=== PATIENT | female | born 1960 | race Two or more races ===

== ENCOUNTER 2024-09-20 13:46 | Outpatient (AMB) | payer MEDICAID, SELFPAY ==
--- NOTE | 2024-09-20 14:12 | XR_ITS ---
Examination: Bilateral knees 2 views Right lateral knee left lateral knee 2 views Bilateral axial knees single view TECHNIQUE: Bilateral AP knees standing single view, bilateral PA knees standing single view 30 degrees flexion Standing right lateral knee left lateral knee 2 views Bilateral axial knees single view total 5 views Exam date and time: September 20, 2024 1430 hours INDICATIONS: Bilateral knee replacements left knee surgery June 2023 right knee surgery November 2023 FINDINGS: Moderate osteopenia Bilateral total knee arthroplasties. Satisfactory alignment No loosening of the prosthetic components No patellar dislocation IMPRESSION: Bilateral total knee arthroplasties with satisfactory alignment
--- NOTE | 2024-09-20 14:13 | PD.ORTHCLVIS ---
Med/Allergies Allergies & Medications Allergies acetaminophen (From Vicodin) Allergy (Intermediate, Verified 05/05/24 08:31) Nausea hydrocodone (From Vicodin) Allergy (Intermediate, Verified 05/05/24 08:31) Nausea tramadol (From Ultram) Allergy (Intermediate, Verified 05/05/24 08:31) Vomiting Exam Exam Patient is in no acute distress and is cooperative with the examination today. Patient has a normal mood and affect. Breathing is nonlabored. In no respiratory distress. Bilateral extremities were evaluated and demonstrates sensation intact to light touch. Palpable pedal pulses are present. No significant edema is present. Left knee incision is clean dry intact. Range of motion is 0 to 100 degrees. She is tender to palpation of the patella tendon from the inferior pole down to the tubercle Right knee incision is clean dry and intact. Range of motion is 0 to 100 degrees X-rays demonstrate a cementless total knee replacement in alignment positioning. They are cementless knees Assessment and Plan Problem List (1) Status post total right knee replacement: Status: Acute (2) Status post total left knee replacement: Status: Acute Plan: Patient is a pleasant 63-year-old female status post left total knee replacement. She is tender to palpation overlying the patella tendon. We discussed different treatment options. We will get new x-rays to ensure the components are good but we will discussed nonoperative treatment clued anti-inflammatories and physical therapy Questionairres Past Medical History Past Medical History Have you ever been diagnosed with any of the following: Neurological Problems Seizures: No Cardiology Problems Hypercholesterolemia: Yes Congestive Heart Failure: No Hypertension: Yes Respiratory Problems Chronic Obstructive Pulmonary Disease (COPD): No Stomache/Intestinal Problems Obesity: Yes Genital/Urinary Problems Renal Disease: No Kidney Stones: Yes Reproductive Problems Previous Pregnancies: Yes Musculoskeletal Problems Arthritis: Yes Endocrine Problems Diabetes Mellitus Type 1: No Diabetes Mellitus Type 2: No Other Problems Hospitalization: No Shingles: No Blood Transfusions: No Blood Transfusion Reaction: No Anesthesia Reactions: No Measles: Yes Cancer: No Surgical History Total Knee Replacement: Yes Thyroidectomy: Yes Subjective Immunization / Flu Flu Vaccine in the Last 12 Months: Yes Flu Vaccine Exclusion Criteria: Already Received History of Present Illness Chief complaint: Bilateral knee pain Gina is status post left total knee replacement 1 year ago in the left and 8 months on the right. She reports that the left knee pains been hurting her recently. She is a lot of pain with stairs. She points to below the patella tendon where the pain is. She Review of Systems Review of Systems: All systems negative unless otherwise noted in HPI.
[2024-09-20 14:15] VITALS: BP 155/74; PULSE 78; RESP 18; TEMP 36.3; O2SAT 97; BMI 35.9
== END 2024-09-20 14:17 | disposition home or self-care (01) ==
PROVIDERS: PCP Family Medicine; Referring Provider Family Medicine; Supervising Provider Orthopaedic Surgery Adult Reconstructive Orthopaedic Surgery; Visit Provider Orthopaedic Surgery Adult Reconstructive Orthopaedic Surgery
DX: M25.561 Pain in right knee (principal); M25.562 Pain in left knee; Z96.653 Presence of artificial knee joint, bilateral
CPT/HCPCS: 73564; 99213; G0463

== ENCOUNTER 2024-10-11 12:53 | Outpatient (AMB) | payer MEDICAID, SELFPAY ==
[2024-10-11 13:06] VITALS: BP 154/85; PULSE 72; RESP 17; TEMP 35.9; O2SAT 95; BMI 35.5
--- NOTE | 2024-10-11 13:06 | PD.ORTHCLVIS ---
Vital signs 10/11/24 13:06 Height 1.55 m Height Method Stated Weight 85.304 kg Weight Measurement Method Standing Scale BMI 35.5 BP 154/85 H Blood Pressure Source Automatic Cuff Blood Pressure Location Left Upper Arm Position Sitting Respiration 17 Pulse 72 Pulse Source Monitor Temp 96.6 F L Temp Source Temporal Artery Scan Pulse Oximetry (%) 95 Oxygen Delivery Method Room Air Med/Allergies Allergies & Medications Allergies acetaminophen (From Vicodin) Allergy (Intermediate, Verified 10/11/24 13:08) Nausea hydrocodone (From Vicodin) Allergy (Intermediate, Verified 10/11/24 13:08) Nausea tramadol (From Ultram) Allergy (Intermediate, Verified 10/11/24 13:08) Vomiting Medication Reconciliation acetaminophen 325 mg tablet 650 mg (2 x 325 mg) PO QID #90 tabs 07/08/23 [Rx Confirmed 10/11/24] lisinopril 20 mg tablet 20 mg PO QDAY 11/20/23 [History Confirmed 10/11/24] acetaminophen 500 mg tablet (Acetaminophen Extra Strength) 1,000 mg (2 x 500 mg) PO Q6H PRN pain #90 tabs 11/23/23 [Rx Confirmed 10/11/24] aspirin 81 mg tablet,delayed release 81 mg PO BID #60 tabs 11/23/23 [Rx Confirmed 10/11/24] doxycycline hyclate 100 mg tablet 100 mg PO BID #14 tabs 11/23/23 [Rx Confirmed 10/11/24] meloxicam 7.5 mg tablet 7.5 mg PO QDAY #30 tabs 11/23/23 [Rx Confirmed 10/11/24] pregabalin 75 mg capsule 75 mg PO BID #45 caps 11/23/23 [Rx Confirmed 10/11/24] sennosides 8.6 mg-docusate sodium 50 mg tablet (Senna-S) 1 tab-cap PO QDAY #30 tabs 11/23/23 [Rx Confirmed 10/11/24] diphenhydramine HCl 50 mg tablet 50 mg PO Q6H PRN itching #30 tabs 12/03/23 [Rx Confirmed 10/11/24] sulfamethoxazole 800 mg-trimethoprim 160 mg tablet (Bactrim DS) 1 tab PO Q12H #14 tabs 12/03/23 [Rx Confirmed 10/11/24] oxycodone 5 mg tablet 5 mg PO Q6H PRN pain #28 tabs 12/11/23 [Rx Confirmed 10/11/24] diphenhydramine HCl 25 mg capsule (Benadryl) 25 mg PO Q8H PRN allergic symptoms #30 caps 01/18/24 [Rx Confirmed 10/11/24] gabapentin 300 mg capsule 300 mg PO QHS #60 caps 05/05/24 [Rx Confirmed 10/11/24] Exam Exam Patient is in no acute distress and is cooperative with the examination today. Patient has a normal mood and affect. Breathing is nonlabored. In no respiratory distress. Bilateral extremities were evaluated and demonstrates sensation intact to light touch. Palpable pedal pulses are present. No significant edema is present. Left knee incision is clean dry intact. Range of motion is 0 to 100 degrees. She is tender to palpation of the patella tendon from the inferior pole down to the tubercle Right knee incision is clean dry and intact. Range of motion is 0 to 100 degrees X-rays demonstrate a cementless total knee replacement in alignment positioning. They are cementless knees Assessment and Plan Problem List (1) Status post total right knee replacement: Status: Acute (2) Status post total left knee replacement: Status: Acute Plan: Patient is a pleasant 63-year-old female status post left total knee replacement. She is doing well and we sent her some antiinflammatories for her patella tendonitis. Office Procedures GNS Level of Care Nursing/Assessment Patient Status: Established Patient Nursing Assessment/Reassesment: Medication Reconciliation, Update PMH in EMR and Vital Signs Coordination of Care: Complex Care and Chronic Disease 1-5, Education Complex Pt/Fam, Consent,records obtained, informed consent, Results/Orders obtained and Staff clarify orders Established Patient Charge Established Patient Point Assignment: 95 Established Patient Point Charge: EP Level 3 (80-115) MA Intake Visit Data Collection New Patient or Established: Established Patient (seen at [facility] within 3 years) Reason for Visit:: XRAY RESULTS Seen by Clinical Staff ONLY (RN/MA): No It Sales Consultant Required: 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 PCP or OBGYN visit in last 3 months: Yes Hx Now: No Do You Feel Safe at Home: Yes Authorities Contacted: N/A Questionairres Past Medical History Past Medical History Have you ever been diagnosed with any of the following: Neurological Problems Seizures: No Cardiology Problems Hypercholesterolemia: Yes Congestive Heart Failure: No Hypertension: Yes Respiratory Problems Chronic Obstructive Pulmonary Disease (COPD): No Smoking: No Smoking Cessation Counseling: No Smoking Exposure: No Stomache/Intestinal Problems Obesity: Yes Genital/Urinary Problems Renal Disease: No Kidney Stones: Yes Reproductive Problems Previous Pregnancies: Yes Musculoskeletal Problems Arthritis: Yes Endocrine Problems Diabetes Mellitus Type 1: No Diabetes Mellitus Type 2: No Other Problems Hospitalization: No Shingles: No Blood Transfusions: No Blood Transfusion Reaction: No Anesthesia Reactions: No Measles: Yes Cancer: No Surgical History Total Knee Replacement: Yes Thyroidectomy: Yes Subjective Visit Visit for: follow up visit and x-rays (RESULTS) Immunization / Flu Flu Vaccine in the Last 12 Months: No Flu Vaccine Exclusion Criteria: No Exclusion Criteria History of Present Illness Chief complaint: Bilateral knee pain Gina is status post left total knee replacement approximately 1 year ago. She reports she is doing well. Her xrays look good Pain Pain level (0-10): 7 Pain duration: ON AND OFF Pain location: inside (medial) and anterior Pain quality: sharp and aching Pain timing: night and increases with activity Associated signs & symptoms: stiffness Ambulatory data Ambulatory device: none Treatments Improvement with previous injections: No Improvement with PT: No Improvement with NSAIDS: no Review of Systems Review of Systems: All systems negative unless otherwise noted in HPI.
== END 2024-10-11 13:17 | disposition home or self-care (01) ==
LOC: HODSRG 12:53
PROVIDERS: PCP Family Medicine; Referring Provider Family Medicine; Supervising Provider Orthopaedic Surgery Adult Reconstructive Orthopaedic Surgery; Visit Provider Orthopaedic Surgery Adult Reconstructive Orthopaedic Surgery
DX: Z96.653 Presence of artificial knee joint, bilateral (principal); I10 Essential (primary) hypertension; E78.00 Pure hypercholesterolemia, unspecified
CPT/HCPCS: 99213; G0463

== ENCOUNTER 2024-12-06 13:35 | Outpatient (AMB) | payer MEDICAID, SELFPAY ==
[2024-12-06 14:04] VITALS: BP 130/81; PULSE 79; RESP 18; TEMP 36.7; O2SAT 98; BMI 33.6
--- NOTE | 2024-12-06 14:04 | ORTHONT_ITS ---
Vital signs 12/06/24 14:04 Height 1.55 m Height Method Stated Weight 80.824 kg Weight Measurement Method Standing Scale BMI 33.6 BP 130/81 Blood Pressure Source Automatic Cuff Blood Pressure Location Right Upper Arm Position Sitting Respiration 18 Pulse 79 Pulse Source Monitor Temp 98.1 F Temp Source Temporal Artery Scan Pulse Oximetry (%) 98 Oxygen Delivery Method Room Air Med/Allergies Allergies & Medications Allergies acetaminophen (From Vicodin) Allergy (Intermediate, Verified 12/06/24 14:05) Nausea hydrocodone (From Vicodin) Allergy (Intermediate, Verified 12/06/24 14:05) Nausea tramadol (From Ultram) Allergy (Intermediate, Verified 12/06/24 14:05) Vomiting Medication Reconciliation acetaminophen 325 mg tablet 650 mg (2 x 325 mg) PO QID #90 tabs 07/08/23 [Rx Confirmed 12/06/24] lisinopril 20 mg tablet 20 mg PO QDAY 11/20/23 [History Confirmed 12/06/24] acetaminophen 500 mg tablet (Acetaminophen Extra Strength) 1,000 mg (2 x 500 mg) PO Q6H PRN pain #90 tabs 11/23/23 [Rx Confirmed 12/06/24] aspirin 81 mg tablet,delayed release 81 mg PO BID #60 tabs 11/23/23 [Rx Confirmed 12/06/24] doxycycline hyclate 100 mg tablet 100 mg PO BID #14 tabs 11/23/23 [Rx Confirmed 12/06/24] meloxicam 7.5 mg tablet 7.5 mg PO QDAY #30 tabs 11/23/23 [Rx Confirmed 12/06/24] sennosides 8.6 mg-docusate sodium 50 mg tablet (Senna-S) 1 tab-cap PO QDAY #30 tabs 11/23/23 [Rx Confirmed 12/06/24] diphenhydramine HCl 50 mg tablet 50 mg PO Q6H PRN itching #30 tabs 12/03/23 [Rx Confirmed 12/06/24] sulfamethoxazole 800 mg-trimethoprim 160 mg tablet (Bactrim DS) 1 tab PO Q12H #14 tabs 12/03/23 [Rx Confirmed 12/06/24] oxycodone 5 mg tablet 5 mg PO Q6H PRN pain #28 tabs 12/11/23 [Rx Confirmed 12/06/24] diphenhydramine HCl 25 mg capsule (Benadryl) 25 mg PO Q8H PRN allergic symptoms #30 caps 01/18/24 [Rx Confirmed 12/06/24] gabapentin 300 mg capsule 300 mg PO QHS #60 caps 05/05/24 [Rx Confirmed 12/06/24] naproxen 500 mg tablet 500 mg PO BID PRN pain #60 tabs 10/11/24 [Rx Confirmed 12/06/24] pregabalin 75 mg capsule 75 mg PO BID #45 caps 12/06/24 [Rx] Exam Exam Patient is in no acute distress and is cooperative with the examination today. Patient has a normal mood and affect. Breathing is nonlabored. In no respiratory distress. Bilateral extremities were evaluated and demonstrates sensation intact to light touch. Palpable pedal pulses are present. No significant edema is present. Left knee incision is clean dry intact. Range of motion is 0 to 100 degrees. She is tender to palpation of the patella tendon from the inferior pole down to the tubercle Right knee incision is clean dry and intact. Range of motion is 0 to 100 degrees X-rays demonstrate a cementless total knee replacement in alignment positioning. They are cementless knees Assessment and Plan Problem List (1) Status post total right knee replacement: Status: Acute (2) Status post total left knee replacement: Status: Acute Plan: Patient is a pleasant 63-year-old female status post left total knee replacement. She is doing well and we sent her some antiinflammatories for her patella tendonitis. We will get new x-rays as she has had a recent increase in pain in the last Office Procedures GNS Level of Care Nursing/Assessment Patient Status: Established Patient Nursing Assessment/Reassesment: Medication Reconciliation, Update PMH in EMR and Vital Signs Coordination of Care: Complex Care and Chronic Disease 1-5, Education Complex Pt/Fam, Consent,records obtained, informed consent, Results/Orders obtained and Staff clarify orders Special Needs: Language special needs Established Patient Charge Established Patient Point Assignment: 95 Established Patient Point Charge: EP Level 3 (80-115) MA Intake Visit Data Collection New Patient or Established: Established Patient (seen at [facility] within 3 years) Reason for Visit:: KNEE PAIN Seen by Clinical Staff ONLY (RN/MA): No Verbal consent obtained for Telemed visit?: No 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 PCP or OBGYN visit in last 3 months: Yes Hx Now: No Do You Feel Safe at Home: Yes Authorities Contacted: N/A Questionairres Past Medical History Past Medical History Have you ever been diagnosed with any of the following: Neurological Problems Seizures: No Cardiology Problems Hypercholesterolemia: Yes Congestive Heart Failure: No Hypertension: Yes Respiratory Problems Chronic Obstructive Pulmonary Disease (COPD): No Smoking: No Smoking Cessation Counseling: No Smoking Exposure: No Stomache/Intestinal Problems Obesity: Yes Genital/Urinary Problems Renal Disease: No Kidney Stones: Yes Reproductive Problems Previous Pregnancies: Yes Musculoskeletal Problems Arthritis: Yes Endocrine Problems Diabetes Mellitus Type 1: No Diabetes Mellitus Type 2: No Other Problems Hospitalization: No Shingles: No Blood Transfusions: No Blood Transfusion Reaction: No Anesthesia Reactions: No Measles: Yes Cancer: No Surgical History Total Knee Replacement: Yes Thyroidectomy: Yes Subjective Visit Visit for: follow up visit and knee Immunization / Flu Flu Vaccine in the Last 12 Months: No Flu Vaccine Exclusion Criteria: No Exclusion Criteria History of Present Illness Chief complaint: KNEE PAIN Gina is status post left total knee replacement approximately 1.5 year ago. She reports she is doing well. Her xrays look good. She reports that she has been getting unwanted numbness and tingling starting 3 days ago Pain Pain level (0-10): 4 Pain duration: ALL DAY Pain location: inside (medial) and outside (lateral) Pain quality: shocking and electric Pain timing: night Associated signs & symptoms: numbness Ambulatory data Ambulatory device: none Treatments Improvement with previous injections: No Improvement with PT: No Improvement with NSAIDS: no Review of Systems Review of Systems: All systems negative unless otherwise noted in HPI.
--- NOTE | 2024-12-06 14:11 | XR_ITS ---
Examination: Bilateral knees 2 views Right lateral knee left lateral knee 2 views Bilateral axial knees single view TECHNIQUE: Bilateral AP knees standing single view, bilateral PA knees standing single view flexion Standing right lateral knee left lateral knee 2 views Bilateral axial knees single view total 5 views Date and time: December 06, 2024 1441 hours Comparison September 20, 2024 INDICATIONS: Left knee replacement 2 years ago right knee replacement one year ago, bilateral knee pain beginning 7 days ago. FINDINGS: Moderate osteopenia Bilateral total knee arthroplasties. Satisfactory alignment. No fractures No loosening of the prosthetic devices Moderate narrowing right lateral patellofemoral joint IMPRESSION: Bilateral total knee arthroplasties with satisfactory alignment
== END 2024-12-06 14:13 | disposition home or self-care (01) ==
LOC: HODSRG 13:35
PROVIDERS: PCP Family Medicine; Referring Provider Family Medicine; Supervising Provider Orthopaedic Surgery Adult Reconstructive Orthopaedic Surgery; Visit Provider Orthopaedic Surgery Adult Reconstructive Orthopaedic Surgery
DX: Z96.653 Presence of artificial knee joint, bilateral (principal); M76.50 Patellar tendinitis, unspecified knee; I10 Essential (primary) hypertension; E78.00 Pure hypercholesterolemia, unspecified
CPT/HCPCS: 73564; 99213; G0463

== ENCOUNTER 2024-12-22 15:23 | Outpatient (AMB) | payer MEDICAID, SELFPAY ==
[2024-12-22 16:15] VITALS: BP 126/75; PULSE 78; RESP 18; TEMP 36.2; O2SAT 97; BMI 33.0
--- NOTE | 2024-12-22 16:15 | ORTHONT_ITS ---
Vital signs 12/22/24 16:15 Height 1.55 m Height Method Stated Weight 79.435 kg Weight Measurement Method Standing Scale BMI 33.0 BP 126/75 Blood Pressure Source Automatic Cuff Blood Pressure Location Left Upper Arm Position Sitting Respiration 18 Pulse 78 Pulse Source Monitor Temp 97.1 F Temp Source Temporal Artery Scan Pulse Oximetry (%) 97 Oxygen Delivery Method Room Air Med/Allergies Allergies & Medications Allergies acetaminophen (From Vicodin) Allergy (Intermediate, Verified 12/22/24 16:16) Nausea hydrocodone (From Vicodin) Allergy (Intermediate, Verified 12/22/24 16:16) Nausea tramadol (From Ultram) Allergy (Intermediate, Verified 12/22/24 16:16) Vomiting Medication Reconciliation acetaminophen 325 mg tablet 650 mg (2 x 325 mg) PO QID #90 tabs 07/08/23 [Rx Confirmed 12/22/24] lisinopril 20 mg tablet 20 mg PO QDAY 11/20/23 [History Confirmed 12/22/24] acetaminophen 500 mg tablet (Acetaminophen Extra Strength) 1,000 mg (2 x 500 mg) PO Q6H PRN pain #90 tabs 11/23/23 [Rx Confirmed 12/22/24] aspirin 81 mg tablet,delayed release 81 mg PO BID #60 tabs 11/23/23 [Rx Confirmed 12/22/24] doxycycline hyclate 100 mg tablet 100 mg PO BID #14 tabs 11/23/23 [Rx Confirmed 12/22/24] meloxicam 7.5 mg tablet 7.5 mg PO QDAY #30 tabs 11/23/23 [Rx Confirmed 12/06/24] sennosides 8.6 mg-docusate sodium 50 mg tablet (Senna-S) 1 tab-cap PO QDAY #30 tabs 11/23/23 [Rx Confirmed 12/22/24] diphenhydramine HCl 50 mg tablet 50 mg PO Q6H PRN itching #30 tabs 12/03/23 [Rx Confirmed 12/22/24] sulfamethoxazole 800 mg-trimethoprim 160 mg tablet (Bactrim DS) 1 tab PO Q12H #14 tabs 12/03/23 [Rx Confirmed 12/22/24] oxycodone 5 mg tablet 5 mg PO Q6H PRN pain #28 tabs 12/11/23 [Rx Confirmed 12/22/24] diphenhydramine HCl 25 mg capsule (Benadryl) 25 mg PO Q8H PRN allergic symptoms #30 caps 01/18/24 [Rx Confirmed 12/22/24] gabapentin 300 mg capsule 300 mg PO QHS #60 caps 05/05/24 [Rx Confirmed 12/22/24] naproxen 500 mg tablet 500 mg PO BID PRN pain #60 tabs 10/11/24 [Rx Confirmed 12/22/24] pregabalin 75 mg capsule 75 mg PO BID #45 caps 12/06/24 [Rx Confirmed 12/22/24] diclofenac sodium 1 % topical gel 4 g topical QID #100 grams 12/22/24 [Rx] Exam Exam Patient is in no acute distress and is cooperative with the examination today. Patient has a normal mood and affect. Breathing is nonlabored. In no respiratory distress. Bilateral extremities were evaluated and demonstrates sensation intact to light touch. Palpable pedal pulses are present. No significant edema is present. Left knee incision is clean dry intact. Range of motion is 0 to 100 degrees. She is tender to palpation of the patella tendon from the inferior pole down to the tubercle Right knee incision is clean dry and intact. Range of motion is 0 to 100 degrees X-rays demonstrate a cementless total knee replacement in alignment positioning. They are cementless knees Assessment and Plan Problem List (1) Status post total right knee replacement: Status: Acute (2) Status post total left knee replacement: Status: Acute Plan: Patient is a pleasant 63-year-old female status post left total knee replacement. She is doing well and we sent her some antiinflammatories for her patella tendonitis. She is doing better with the lyrica (3) Patellar tendinitis: Status: Acute Office Procedures GNS Level of Care Nursing/Assessment Patient Status: Established Patient Nursing Assessment/Reassesment: Medication Reconciliation, Update PMH in EMR and Vital Signs Coordination of Care: Complex Care and Chronic Disease 1-5, Education Complex Pt/Fam, Consent,records obtained, informed consent, Results/Orders obtained and Staff clarify orders Special Needs: Language special needs Established Patient Charge Established Patient Point Assignment: 95 Established Patient Point Charge: EP Level 3 (80-115) PA Intake Visit Data Collection New Patient or Established: Established Patient (seen at [facility] within 3 years) Reason for Visit:: LEFT KNEE F/U Seen by Clinical Staff ONLY (RN/MA): No Four Slide 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 PCP or OBGYN visit in last 3 months: Yes Hx Now: No Do You Feel Safe at Home: Yes Authorities Contacted: N/A Questionairres Past Medical History Past Medical History Have you ever been diagnosed with any of the following: Neurological Problems Seizures: No Cardiology Problems Hypercholesterolemia: Yes Congestive Heart Failure: No Hypertension: Yes Respiratory Problems Chronic Obstructive Pulmonary Disease (COPD): No Smoking: No Smoking Cessation Counseling: No Smoking Exposure: No Stomache/Intestinal Problems Obesity: Yes Genital/Urinary Problems Renal Disease: No Kidney Stones: Yes Reproductive Problems Previous Pregnancies: Yes Musculoskeletal Problems Arthritis: Yes Endocrine Problems Diabetes Mellitus Type 1: No Diabetes Mellitus Type 2: No Other Problems Hospitalization: No Shingles: No Blood Transfusions: No Blood Transfusion Reaction: No Anesthesia Reactions: No Measles: Yes Cancer: No Surgical History Total Knee Replacement: Yes Thyroidectomy: Yes Subjective Visit Visit for: follow up visit, knee and x-rays Immunization / Flu Flu Vaccine in the Last 12 Months: No Flu Vaccine Exclusion Criteria: No Exclusion Criteria History of Present Illness Chief complaint: KNEE PAIN Gina is status post left total knee replacement approximately 1.5 year ago. She reports she is doing well. Her xrays look good. She reports that she has been getting unwanted numbness and tingling starting 2 weeks ago. She reports that the pregabalin has helped tremendously Pain Pain level (0-10): 6 Pain duration: ON AND OFF Pain location: inside (medial), outside (lateral) and anterior Pain quality: sharp, dull, aching, shocking and electric Pain timing: night and increases with activity Associated signs & symptoms: numbness and weakness Ambulatory data Ambulatory device: none Treatments Improvement with previous injections: No Improvement with PT: No Improvement with NSAIDS: no Review of Systems Review of Systems: All systems negative unless otherwise noted in HPI.
== END 2024-12-22 16:19 | disposition home or self-care (01) ==
PROVIDERS: PCP Family Medicine; Referring Provider Family Medicine; Supervising Provider Orthopaedic Surgery Adult Reconstructive Orthopaedic Surgery; Visit Provider Orthopaedic Surgery Adult Reconstructive Orthopaedic Surgery
DX: Z96.652 Presence of left artificial knee joint (principal); M76.52 Patellar tendinitis, left knee; I10 Essential (primary) hypertension; E78.00 Pure hypercholesterolemia, unspecified
CPT/HCPCS: 99213; G0463

== ENCOUNTER 2025-03-30 14:48 | Outpatient (AMB) | payer MEDICAID, SELFPAY ==
--- NOTE | 2025-03-30 15:00 | ORTHONT_ITS ---
Vital signs 03/30/25 15:01 Height 1.55 m Height Method Measured Weight 73.652 kg Weight Measurement Method Standing Scale BMI 30.7 BP 115/73 Blood Pressure Source Automatic Cuff Blood Pressure Location Left Upper Arm Position Sitting Respiration 16 Pulse 66 Pulse Source Monitor Temp 97.2 F Temp Source Temporal Artery Scan Pulse Oximetry (%) 98 Oxygen Delivery Method Room Air Med/Allergies Allergies & Medications Allergies acetaminophen (From Vicodin) Allergy (Intermediate, Verified 03/30/25 15:02) Nausea hydrocodone (From Vicodin) Allergy (Intermediate, Verified 03/30/25 15:02) Nausea tramadol (From Ultram) Allergy (Intermediate, Verified 03/30/25 15:02) Vomiting Medication Reconciliation acetaminophen 325 mg tablet 650 mg (2 x 325 mg) PO QID #90 tabs 07/08/23 [Rx Confirmed 03/30/25] lisinopril 20 mg tablet 20 mg PO QDAY 11/20/23 [History Confirmed 03/30/25] acetaminophen 500 mg tablet (Acetaminophen Extra Strength) 1,000 mg (2 x 500 mg) PO Q6H PRN pain #90 tabs 11/23/23 [Rx Confirmed 03/30/25] aspirin 81 mg tablet,delayed release 81 mg PO BID #60 tabs 11/23/23 [Rx Confirmed 03/30/25] doxycycline hyclate 100 mg tablet 100 mg PO BID #14 tabs 11/23/23 [Rx Confirmed 03/30/25] meloxicam 7.5 mg tablet 7.5 mg PO QDAY #30 tabs 11/23/23 [Rx Confirmed 03/30/25] sennosides 8.6 mg-docusate sodium 50 mg tablet (Senna-S) 1 tab-cap PO QDAY #30 tabs 11/23/23 [Rx Confirmed 03/30/25] diphenhydramine HCl 50 mg tablet 50 mg PO Q6H PRN itching #30 tabs 12/03/23 [Rx Confirmed 03/30/25] sulfamethoxazole 800 mg-trimethoprim 160 mg tablet (Bactrim DS) 1 tab PO Q12H #14 tabs 12/03/23 [Rx Confirmed 03/30/25] oxycodone 5 mg tablet 5 mg PO Q6H PRN pain #28 tabs 12/11/23 [Rx Confirmed 03/30/25] diphenhydramine HCl 25 mg capsule (Benadryl) 25 mg PO Q8H PRN allergic symptoms #30 caps 01/18/24 [Rx Confirmed 03/30/25] naproxen 500 mg tablet 500 mg PO BID PRN pain #60 tabs 10/11/24 [Rx Confirmed 03/30/25] pregabalin 75 mg capsule 75 mg PO BID #45 caps 12/06/24 [Rx Confirmed 03/30/25] diclofenac sodium 1 % topical gel 4 g topical QID #100 grams 12/22/24 [Rx Confirmed 03/30/25] gabapentin 300 mg capsule 300 mg PO QHS #60 caps 03/30/25 [Rx] Exam Exam Patient is in no acute distress and is cooperative with the examination today. Patient has a normal mood and affect. Breathing is nonlabored. In no respiratory distress. Bilateral extremities were evaluated and demonstrates sensation intact to light touch. Palpable pedal pulses are present. No significant edema is present. Left knee incision is clean dry intact. Range of motion is 0 to 100 degrees. She is tender to palpation of the patella tendon from the inferior pole down to the tubercle Right knee incision is clean dry and intact. Range of motion is 0 to 100 degrees X-rays demonstrate a cementless total knee replacement in alignment positioning. They are cementless knees Assessment and Plan Problem List (1) Status post total right knee replacement: Status: Acute (2) Status post total left knee replacement: Status: Acute Plan: Patient is a pleasant 63-year-old female status post left total knee replacement. She is having radicular pain that is going down from her knee down her toes. We will try gabapentin She has great relief from osteoarthritis (3) Patellar tendinitis: Status: Acute Office Procedures GNS Level of Care Nursing/Assessment Patient Status: Established Patient Nursing Assessment/Reassesment: Medication Reconciliation, Orthostatic Vitals, Update PMH in EMR and Vital Signs Coordination of Care: Complex Care and Chronic Disease 1-5, Education Complex Pt/Fam, Consent,records obtained, informed consent, Lab and Imaging orders, Results/Orders obtained and Staff clarify orders Special Needs: Language special needs Established Patient Charge Established Patient Point Assignment: 120 Established Patient Point Charge: EP Level 3 (80-115) MA Intake Visit Data Collection New Patient or Established: Established Patient (seen at [facility] within 3 years) Reason for Visit:: KNEE PAIN Seen by Clinical Staff ONLY (RN/MA): No 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 PCP or OBGYN visit in last 3 months: Yes Hx Now: No Do You Feel Safe at Home: Yes Authorities Contacted: N/A Questionairres Past Medical History Past Medical History Have you ever been diagnosed with any of the following: Neurological Problems Seizures: No Cardiology Problems Hypercholesterolemia: Yes Congestive Heart Failure: No Hypertension: Yes Respiratory Problems Chronic Obstructive Pulmonary Disease (COPD): No Smoking: No Smoking Cessation Counseling: No Smoking Exposure: No Stomache/Intestinal Problems Obesity: Yes Genital/Urinary Problems Renal Disease: No Kidney Stones: Yes Reproductive Problems Previous Pregnancies: Yes Musculoskeletal Problems Arthritis: Yes Endocrine Problems Diabetes Mellitus Type 1: No Diabetes Mellitus Type 2: No Other Problems Hospitalization: No Shingles: No Blood Transfusions: No Blood Transfusion Reaction: No Anesthesia Reactions: No Measles: Yes Cancer: No Surgical History Total Knee Replacement: Yes Thyroidectomy: Yes Subjective Visit Visit for: follow up visit and knee Immunization / Flu Flu Vaccine in the Last 12 Months: No Flu Vaccine Exclusion Criteria: No Exclusion Criteria History of Present Illness Chief complaint: KNEE PAIN Gina is status post left total knee replacement approximately 2 year ago. She reports she is doing well. Her xrays look good. She reports that she has been getting numbness and tingling starting 2 months ago. She reports that the pregabalin and gabapentin has helped tremendously and she wants a new prescription Pain Pain level (0-10): 8 Pain duration: ON AND OFF Pain location: inside (medial), outside (lateral) and anterior Pain quality: sharp, dull, aching, shocking and electric Pain timing: night and increases with activity Associated signs & symptoms: numbness and weakness Ambulatory data Ambulatory device: none Treatments Improvement with previous injections: No Improvement with PT: No Improvement with NSAIDS: no Review of Systems Review of Systems: All systems negative unless otherwise noted in HPI.
[2025-03-30 15:01] VITALS: BP 115/73; PULSE 66; RESP 16; TEMP 36.2; O2SAT 98; BMI 30.7
== END 2025-03-30 15:32 | disposition home or self-care (01) ==
LOC: HODSRG 14:48
PROVIDERS: PCP Family Medicine; Referring Provider Family Medicine; Supervising Provider Orthopaedic Surgery Adult Reconstructive Orthopaedic Surgery; Visit Provider Orthopaedic Surgery Adult Reconstructive Orthopaedic Surgery
DX: Z96.653 Presence of artificial knee joint, bilateral (principal); M76.50 Patellar tendinitis, unspecified knee; I10 Essential (primary) hypertension; E78.00 Pure hypercholesterolemia, unspecified; E66.9 Obesity, unspecified; Z68.30 Body mass index [BMI] 30.0-30.9, adult; R20.0 Anesthesia of skin; R20.2 Paresthesia of skin
CPT/HCPCS: 99213; G0463

== ENCOUNTER 2025-04-04 18:42 | Emergency (ER) | payer MEDICAID, SELFPAY ==
--- NOTE | 2025-04-04 18:48 | XR_ITS ---
Examination: Duplex scan of the lower extremity, unilateral left Date and time of exam: April 04, 2025, 1940 hrs. Indications: Left leg swelling and pain beginning 4 days ago Technique: Duplex scan of the extremity veins using B-mode/grayscale imaging and Doppler spectral analysis and color flow Attention is directed to internal echogenicity, compression and augmentation involving these veins, color flow assessment, spectral analysis Findings: Major deep venous structures in the extremity demonstrate normal course and caliber. There is no evidence of deep vein thrombosis. Normal color flow and spectral analysis Impression: Negative for DVT..
[2025-04-04 19:10] VITALS: BP 159/89; PULSE 70; RESP 18; TEMP 36.9; O2SAT 95; BMI 32.1
--- NOTE | 2025-04-04 19:35 | PD.EDEXREM ---
ED Extremity Problem RME/HPI General Chief complaint: Extremity Problem,Nontraumatic Stated complaint: R/O DVT to left lower leg Time Seen by Provider: 04/04/25 19:29 Arrival date/time: 04/04/25 18:42 64F with history of HTN and L knee replacement presents to ED with several days of LLE redness, swelling, and pain w/o fall/trauma. Patient saw ortho doc last week who did not do any interventions. PCP sent patient here to r/o DVT. Limitations: no limitations Related Data Home Medications ?Medication ?Instructions ?Recorded ?Confirmed lisinopril 20 mg tablet 20 mg PO QDAY 11/20/23 03/30/25 Previous Rx's ?Medication ?Instructions ?Recorded acetaminophen 325 mg tablet 650 mg (2 x 325 mg) PO QID #90 tabs 07/08/23 acetaminophen 500 mg tablet 1,000 mg (2 x 500 mg) PO Q6H PRN 11/23/23 (Acetaminophen Extra Strength) pain #90 tabs aspirin 81 mg tablet,delayed 81 mg PO BID #60 tabs 11/23/23 release doxycycline hyclate 100 mg tablet 100 mg PO BID #14 tabs 11/23/23 meloxicam 7.5 mg tablet 7.5 mg PO QDAY #30 tabs 11/23/23 sennosides 8.6 mg-docusate sodium 1 tab-cap PO QDAY #30 tabs 11/23/23 50 mg tablet (Senna-S) diphenhydramine HCl 50 mg tablet 50 mg PO Q6H PRN itching #30 tabs 12/03/23 sulfamethoxazole 800 1 tab PO Q12H #14 tabs 12/03/23 mg-trimethoprim 160 mg tablet (Bactrim DS) oxycodone 5 mg tablet 5 mg PO Q6H PRN pain #28 tabs 12/11/23 diphenhydramine HCl 25 mg capsule 25 mg PO Q8H PRN allergic symptoms 01/18/24 (Benadryl) #30 caps naproxen 500 mg tablet 500 mg PO BID PRN pain #60 tabs 10/11/24 pregabalin 75 mg capsule 75 mg PO BID #45 caps 12/06/24 diclofenac sodium 1 % topical gel 4 g topical QID #100 grams 12/22/24 gabapentin 300 mg capsule 300 mg PO QHS #60 caps 03/30/25 Allergies Allergy/AdvReac Type Severity Reaction Status Date / Time acetaminophen (From Vicodin) Allergy Intermediate Nausea Verified 04/04/25 18:47 hydrocodone (From Vicodin) Allergy Intermediate Nausea Verified 04/04/25 18:47 tramadol (From Ultram) Allergy Intermediate Vomiting Verified 04/04/25 18:47 Review of Systems Review of Systems Systems Reviewed: All systems reviewed, normal except as documented Integumentary/Breasts Skin/Breast: Reports as per HPI and Reports skin swelling Past Medical History Past Medical History NEUROLOGIC: Negative Neurological Disorders or Seizures CARDIAC: Positive Cardiac Disorders, Hypercholesterolemia and Hypertension; Negative Congestive Heart Failure RESPIRATORY: Negative Chronic Obstructive Pulmonary Disease (COPD), Smoking, Smoking Cessation Counseling or Smoking Exposure GASTROINTESTINAL: Positive Gastrointestinal Disorders and Obesity GENITOURINARY: Positive Genitourinary Disorders and Kidney Stones; Negative Renal Disease REPRODUCTIVE: Positive Previous Pregnancies MUSCULOSKELETAL: Positive Musculoskeletal Disorders and Arthritis ENDOCRINE: Negative Endocrine Disorders, Diabetes Mellitus Type 1 or Diabetes Mellitus Type 2 HEMATOLOGIC: Negative Blood Disorders OTHER HISTORY: Positive Measles; Negative Hospitalization, Autoimmune Disease, Shingles, Blood Transfusions, Blood Transfusion Reaction, Anesthesia Reactions or Cancer Family History FAMILY HISTORY: Positive Family Cardiac Disorders; Negative Family Psychiatric Problems, Family Respiratory Disorders, Family Gastrointestinal Problems, Family Cancer, Family Surgery or Family Anesthesia Reaction Surgical History SURGICAL: Positive Thyroidectomy and Tubal Ligation Social History SMOKING STATUS: Never smoker ED Exam General Limitations: Present no limitations General appearance: Present alert and in no apparent distress Head Head exam: Present atraumatic Neck Neck exam: Present normal inspection, full ROM and trachea midline Chest Chest inspection: Present normal inspection and symmetric chest wall rise Extremities Exam Extremities exam: Present full ROM Expanded Lower Extremity Exam Lower leg exam: Present full ROM (L), swelling and erythema Ankle exam: Present full ROM and swelling Foot/toe exam: Present full ROM and swelling Neurological Exam Neurological exam: Present alert and oriented X3 Psychiatric Psychiatric exam: Present normal affect and normal mood Skin Skin exam: Present warm, dry, intact and normal color Course Quality Measures none Orders Category Date Time Status US venous doppler LE LT Stat Exams 04/04/25 18:48 Completed Vital Signs Vital signs: Vital Signs Temperature 98.4 F 04/04/25 19:10 Pulse Rate 70 04/04/25 19:10 Respiratory Rate 18 04/04/25 19:10 Blood Pressure 159/89 H 04/04/25 19:10 Pulse Oximetry (%) 95 04/04/25 19:10 Oxygen Delivery Method Room Air 04/04/25 19:10 O2 at 95% on RA and WNLs Extremity Problem MDM Narrative MDM Narrative:: 64F with history of HTN and L knee replacement presents to ED with several days of LLE redness, swelling, and pain w/o fall/trauma. Patient saw ortho doc last week who did not do any interventions. PCP sent patient here to r/o DVT. Physical exam reveals LLE swelling and some redness, but not around L knee. Gait and ROM intact. Patient is afebrile, calm, and alert. US no DVT. Patient eloped. Patient data External records reviewed:: [facility] previous records Clinical information provided by:: patient Social determinants that could affect healthcare access:: none Patient has the following chronic illnesses:: HTN How is presenting disease/condition affected by chronic disease/condition?: exacerbated by Evaluation data The following diagnostics were reviewed and interpreted by me:: radiology exam(s) Lab and/or radiology exams considered but not ordered:: ordered Interpretation Summary: above Medications / Prescriptions Medications or Prescriptions considered but not ordered:: not ordered Medication administrations:: n/a Consultations Consultation(s) initiated? (list below): No Diagnosis Extremity Problem Differential Diagnosis: herpes zoster, gout, cellulitis, superficial thrombophlebitis, deep venous thrombosis of upper extremity, lower extremity edema and deep vein thrombosis of lower extremity Most likely diagnosis given after review of the tests above:: leg swelling Admission Indicated Admission indicated?: not indicated Admission Request Was there a request for admission?: No Disposition Plan Disposition Plan: other (specify) (eloped) Discharge Plan Plan Patient Disposition: Elopement Prescriptions/Referrals Prescriptions/Med Rec: No Action sulfamethoxazole-trimethoprim [Bactrim DS] 800-160 mg tablet 1 tab PO Q12H Qty: 14 0RF diphenhydramine HCl 50 mg tablet 50 mg PO Q6H PRN (Reason: itching) Qty: 30 0RF naproxen 500 mg tablet 500 mg PO BID PRN (Reason: pain) Qty: 60 1RF pregabalin 75 mg capsule 75 mg PO BID Qty: 45 0RF oxycodone 5 mg tablet 5 mg PO Q6H MDD 40 PRN (Reason: pain) Qty: 28 0RF diclofenac sodium 1 % gel 4 g topical QID Qty: 100 0RF Rx Instructions: apply to single knee, ankle, foot; for foot includes sole/toes/top of foot gabapentin 300 mg capsule 300 mg PO QHS Qty: 60 0RF acetaminophen 325 mg tablet 650 mg PO QID Qty: 90 0RF lisinopril 20 mg Tablet 20 mg PO QDAY sennosides-docusate sodium [Senna-S] 8.6-50 mg tablet 1 tab-cap PO QDAY Qty: 30 0RF aspirin 81 mg tablet,delayed release (DR/EC) 81 mg PO BID Qty: 60 0RF acetaminophen [Acetaminophen Extra Strength] 500 mg tablet 1,000 mg PO Q6H MDD 1000mg PRN (Reason: pain) Qty: 90 0RF meloxicam 7.5 mg tablet 7.5 mg PO QDAY Qty: 30 0RF doxycycline hyclate 100 mg tablet 100 mg PO BID Qty: 14 0RF diphenhydramine HCl [Benadryl] 25 mg capsule 25 mg PO Q8H PRN (Reason: allergic symptoms) Qty: 30 0RF Referrals: Rakesh Armstrong MD [Primary Care Provider, Family Practice] - In 1 week Problem List Clinical Impression: Leg swelling Patient/Caregiver Discharge Instructions Print Language: Sami PA/LEAD 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 Cr
--- NOTE | 2025-04-04 21:25 | PC.NURSE ---
PT CALLED BACK NO ANSWER
--- NOTE | 2025-04-04 21:32 | PC.NURSE ---
PT CALLED BACK FROM [facility] NO ANSWER
--- NOTE | 2025-04-04 21:45 | PC.NURSE ---
PT CALLED BACK FROM [facility] NO ANSWER
== END 2025-04-04 21:50 | disposition left against medical advice (07) ==
PROVIDERS: Emergency Provider Emergency Medicine; PCP Family Medicine
DX: M79.89 Other specified soft tissue disorders (principal); M79.662 Pain in left lower leg; Z96.652 Presence of left artificial knee joint; Z53.29 Procedure and treatment not carried out because of patient's decision for other reasons
CPT/HCPCS: 93971; 99283